=== PATIENT | female | born 1940 | race Caucasian/White ===

== ENCOUNTER 2017-02-19 12:36 | Emergency (ER) | payer MEDICARE, BC ==
[2017-02-19 12:58] VITALS: BP 119/87
--- NOTE | 2017-02-19 14:28 | EDM.PDOC ---
ED HPI GENERAL MEDICAL PROBLEM - General Chief Complaint: Laceration Stated Complaint: FINGERS CAUGHT IN GARAGE DOOR Time Seen by Provider: 02/19/17 12:55 Source of Information: Reports: Patient History Limitations: Reports: No Limitations - History of Present Illness INITIAL COMMENTS - FREE TEXT/NARRATIVE: This is a 76yo F here for catching her fingers in her garage door. She lacerated the distal pads of the 3rd and 4th digits of the right hand. Patient is up to date with her tetanus. She has been able to move the finger and has good rom. Onset: Sudden Onset Date: 02/19/17 Onset Time: 11:30 Location: Reports: Upper Extremity, Right Severity: Moderate Associated Symptoms: Reports: No Other Symptoms Right 4-Ring finger Pain Score (Numeric/FACES): 10 - Related Data Allergies Allergy/AdvReac Type Severity Reaction Status Date / Time meperidine HCl [From Demerol] Allergy Hives Verified 11/01/13 16:38 Penicillins Allergy Hives Verified 11/01/13 16:38 Sulfa (Sulfonamide Allergy Hives Verified 11/01/13 16:38 Antibiotics) Home Meds: Home Meds Gabapentin [Gabapentin] 100 mg PO BID 06/04/16 [History] Past Medical History Cardiovascular History: Reports: Afib Other Cardiovascular History: noted a irreularity when she had her lung surg Respiratory History: Reports: Other (See Below) Other Respiratory History: Patient had lesion for several years and then it started to grow so was removed and found to be cancerous Gastrointestinal History: Reports: None 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 OB/BYN History: % vag births 4 living childrens Other Musculoskeletal History: wrist fracture Neurological History: Reports: Migraines Psychiatric History: Reports: Depression Oncologic (Cancer) History: Reports: Lung - Infectious Disease History Infectious Disease History: Reports: Chicken Pox - Past Surgical History Musculoskeletal Surgical History: Reports: Knee Replacement, Shoulder Replacement, Other (See Below) Social & Family History - Tobacco Use Smoking Status *Q: Former Smoker Used Tobacco, but Quit: Yes Month Tobacco Last Used: Jul 2010 Second Hand Smoke Exposure: No - Caffeine Use Caffeine Use: Reports: Coffee, Soda - Recreational Drug Use Recreational Drug Use: No ED ROS GENERAL - Review of Systems Review Of Systems: ROS reveals no pertinent complaints other than HPI. ED EXAM, SKIN/RASH Exam: See Below Exam Limited By: No Limitations General Appearance: Alert, WD/WN, Mild Distress Respiratory/Chest: No Respiratory Distress Cardiovascular: Normal Peripheral Pulses Extremities: Normal Capillary Refill, Other (good sensations of tips of lacerated figners; laceration 2.5cm of 3rd digit of the mid pad of the distal phalange and 2.4cm of the 4th digit pad of the distal phalange) Neurological: Alert, Oriented, CN II-XII Intact ED WOUND PROCEDURES - Laceration/Wound Repair Right Anterior Distal Finger Laceration/Wound Length In cm: 2.5 (3rd digit) Appearance: Superficial, Subcutaneous Distal NVT: Neuro & Vascular Intact, No Tendon Injury Anesthetic Type: Local Local Anesthesia - Lidocaine (Xylocaine): 1% Plain Local Anesthetic Volume: 5cc Skin Prep: Providone-Iodine (Betadine), Sterile Drape Wound Exploration, Debridement, Revision: Wound Explored Suture Size: 4-0 # of Sutures: 11 Suture Type: Nylon, Interrupted, Simple Drain Placement: No Sterile Dressing Applied: Nurse Tetanus Status Addressed: Yes Complications: None Left Anterior Ventral Finger Laceration/Wound Length In cm: 2.4 (4th digit) Appearance: Superficial, Subcutaneous Distal NVT: Neuro & Vascular Intact, No Tendon Injury Anesthetic Type: Local Local Anesthesia - Lidocaine (Xylocaine): 1% Plain Local Anesthetic Volume: 5cc Skin Prep: Providone-Iodine (Betadine) Saline Irrigation Total cc's: 30 Wound Exploration, Debridement, Revision: Wound Explored Suture Size: 4-0 Suture Type: Nylon, Interrupted, Simple Drain Placement: No Sterile Dressing Applied: Nurse Tetanus Status Addressed: Yes Complications: None Course - Vital Signs Last Recorded V/S: Last Vital Signs Temp 36.8 C 02/19/17 12:57 Pulse 92 02/19/17 12:57 Resp 18 02/19/17 12:57 BP 119/87 02/19/17 12:57 Pulse Ox 99 02/19/17 12:57 Departure - Departure Time of Disposition: 13:20 Disposition: Home, Self-Care 01 Condition: Good Clinical Impression: Laceration of finger of right hand Qualifiers: Encounter type: initial encounter Finger: middle finger Damage to nail status: without damage Foreign body presence: without foreign body Qualified Code(s): S61.212A - Laceration without foreign body of right middle finger without damage to nail, initial encounter Laceration of finger of right hand Qualifiers: Encounter type: initial encounter Finger: middle finger Damage to nail status: without damage Foreign body presence: without foreign body Qualified Code(s): S61.212A - Laceration without foreign body of right middle finger without damage to nail, initial encounter Laceration of finger of right hand without damage to nail Qualifiers: Encounter type: initial encounter Finger: ring finger Foreign body presence: without foreign body Qualified Code(s): S61.214A - Laceration without foreign body of right ring finger without damage to nail, initial encounter - Discharge Information Instructions: Laceration Care, Adult Referrals: PCP,Unknown [Primary Care Provider] - Forms: ED Department Discharge Care Plan Goals: Return to clinic in 7 to 10 days for suture removal. Keep wound clean and dry. Watch for signs of infection. Return to clinic or hospital with any questions or concerns.
== END 2017-02-19 13:55 | disposition home or self-care (01) ==
LOC: LB.ED 12:36
DX: S61.214A Laceration without foreign body of right ring finger without damage to nail, initial encounter (principal); S61.212A Laceration without foreign body of right middle finger without damage to nail, initial encounter; I48.91 Unspecified atrial fibrillation; F32.9 Major depressive disorder, single episode, unspecified; Z96.659 Presence of unspecified artificial knee joint; Z98.890 Other specified postprocedural states; Z87.891 Personal history of nicotine dependence; Z85.118 Personal history of other malignant neoplasm of bronchus and lung; Z88.0 Allergy status to penicillin; Z88.2 Allergy status to sulfonamides; Z88.6 Allergy status to analgesic agent; W23.0XXA Caught, crushed, jammed, or pinched between moving objects, initial encounter; Y92.59 Other trade areas as the place of occurrence of the external cause
CPT/HCPCS: 12002; 99282; 99283-25

== ENCOUNTER 2017-07-31 23:32 | Emergency (ER) | payer MEDICARE, BC ==
[2017-07-31] MEDS ORDERED: Albuterol 8 GM Inhaler INH ONE (23:40)
[2017-07-31] MEDS ORDERED: Azithromycin 250 MG Tab ONE (23:40)
[2017-08-01] MEDS ORDERED: Albuterol/Ipratropium 3.0-0.5 MG/3 ML Neb Soln ONE (00:14)
[2017-08-01 01:01] VITALS: BP 131/70
--- NOTE | 2017-08-01 01:59 | ER ---
HISTORY OF PRESENT ILLNESS: A 76-year-old lady here with complaints of coughing and chest congestion for about a week. She has been coughing up some phlegm on a regular basis. Sometimes, she gets short of breath when she is coughing. She has also noticed a little bit of wheezing. The patient does not have history of asthma. She does have history of lung cancer and has had the right lower lobe of lung removed 1 year ago. The patient denies any GI symptoms. OBJECTIVE: GENERAL APPEARANCE: The patient is awake and alert. She is in no obvious distress. VITAL SIGNS: Reviewed as listed. HEENT: On physical exam of ears; TMs are normal. Nares are patent. Oral mucous membranes moist. Posterior pharynx shows mild drainage. NECK: Supple. LUNG: Exam reveals deep breathing does induce coughing. The patient does have wheezing that is obvious with coughing. There are scattered rhonchi. I do not hear any air exchange of course in the right lower lobe. INITIAL TREATMENT: DuoNeb treatment was given to the patient. This did help somewhat with the wheezing and the coughing. DIAGNOSIS: Asthmatic bronchitis. TREATMENT PLAN: A Z-Dl will be given to be taken as directed. I will give her also an albuterol inhaler two puffs every 4-6 hours for the next couple of days and then as needed for coughing and shortness of breath. Recheck should be within a couple of days if her symptoms are not obviously improving. CRS/MODL /[id number]
[2017-08-01] MEDS ORDERED: Albuterol/Ipratropium 3.0-0.5 MG/3 ML Neb Soln NEB ONE (23:55)
== END 2017-08-01 00:52 | disposition home or self-care (01) ==
LOC: LB.ED 23:32
DX: J45.909 Unspecified asthma, uncomplicated (principal); Z85.118 Personal history of other malignant neoplasm of bronchus and lung
CPT/HCPCS: 99283; A9270; J7620

== ENCOUNTER 2018-07-16 09:22 | Emergency (ER) | payer MEDICARE, BC ==
--- NOTE | 2018-07-16 10:41 | EDM.PDOC ---
ED HPI GENERAL MEDICAL PROBLEM - General Time Seen by Provider: 07/16/18 10:00 Source of Information: Reports: Patient History Limitations: Reports: No Limitations - History of Present Illness INITIAL COMMENTS - FREE TEXT/NARRATIVE: Pt is 77 year old female with PMH of lung cancer with lobectomy. Claims she has been having fever on and off for 1 year and also cough on and of for 1 year now. She had some sweating last night and hence she is here to have her self checked. No productive sputum. No shortness of breath or wheezing. No nasal congestion, bodyaches.No nausea or vomiting. No fatigue. no other complaint. Duration: Intermittent, Other (1 year) Quality: Reports: Ache Severity: Mild Improves with: Reports: None Worsens with: Reports: None Associated Symptoms: Reports: Cough, Fever/Chills. Denies: Confusion, Chest Pain, Diaphoresis, Headaches, Nausea/Vomiting, Rash, Seizure, Shortness of Breath, Syncope, Weakness - Related Data Allergies Allergy/AdvReac Type Severity Reaction Status Date / Time meperidine HCl [From Demerol] Allergy Hives Verified 11/01/13 16:38 Penicillins Allergy Hives Verified 11/01/13 16:38 Sulfa (Sulfonamide Allergy Hives Verified 11/01/13 16:38 Antibiotics) Home Meds: Home Meds Fluticasone Propionate [Flovent HFA] 1 puff INH BID 08/01/17 [History] Past Medical History HEENT History: Reports: Other (See Below) Other HEENT History: right lobe aneurism Cardiovascular History: Reports: Afib Other Cardiovascular History: noted a irreularity when she had her lung surg Respiratory History: Reports: SOB, Other (See Below) Other Respiratory History: Patient had lesion for several years and then it started to grow so was removed and found to be cancerous Gastrointestinal History: Reports: None 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 living 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 Other Musculoskeletal History: wrist fracture Neurological History: Reports: CVA, Migraines Other Neuro History: right side aneurysm Psychiatric History: Reports: Depression Oncologic (Cancer) History: Reports: Lung - Infectious Disease History Infectious Disease History: Reports: Chicken Pox - Past Surgical History Respiratory Surgical History: Reports: Lung Biopsies, Other (See Below) Other Respiratory Surgeries/Procedures: right lower lobectomy Musculoskeletal Surgical History: Reports: Knee Replacement, Shoulder Replacement, Other (See Below) Other Musculoskeletal Surgeries/Procedures:: pt states has had bilateral knee replacement and shoulder sx Oncologic Surgical History: Reports: Lobectomy Other Oncologic Surgeries/Procedures: right lower lobe Social & Family History - Caffeine Use Caffeine Use: Reports: Coffee, Soda ED ROS GENERAL - Review of Systems Review Of Systems: See Below Constitutional: Reports: Fever, Chills. Denies: Weakness, Fatigue HEENT: Denies: Ear Pain, Rhinitis, Throat Pain, Throat Swelling Respiratory: Reports: Cough. Denies: Shortness of Breath, Pleuritic Chest Pain , Sputum Cardiovascular: Denies: Chest Pain, Lightheadedness Endocrine: Denies: Fatigue GI/Abdominal: Denies: Abdominal Pain, Nausea, Vomiting : Denies: Flank Pain, Frequency Musculoskeletal: Denies: Joint Pain, Joint Swelling Skin: Denies: Bruising, Pruritis, Rash ED EXAM, GENERAL - Physical Exam Exam: See Below Exam Limited By: No Limitations General Appearance: Alert, WD/WN, No Apparent Distress Eye Exam: Bilateral Eye: EOMI, PERRL Ears: Normal External Exam, Normal Canal, Hearing Grossly Normal, Normal TMs Ear Exam: Bilateral Ear: Auricle Normal, Canal Normal, TM normal Nose: Normal Inspection Throat/Mouth: Normal Inspection, Normal Lips, Normal Teeth, Normal Gums, Normal Oropharynx, Normal Voice, No Airway Compromise Head: Atraumatic, Normocephalic Neck: Normal Inspection, Supple, Non-Tender, Full Range of Motion Respiratory/Chest: No Respiratory Distress, Lungs Clear, Normal Breath Sounds, No Accessory Muscle Use, Chest Non-Tender Cardiovascular: Normal Peripheral Pulses, Regular Rate, Rhythm, No Edema, No Gallop, No JVD, No Murmur, No Rub GI/Abdominal: Normal Bowel Sounds, Soft, Non-Tender, No Organomegaly, No Distention, No Abnormal Bruit, No Mass Extremities: Normal Inspection, Normal Range of Motion Neurological: Alert, Oriented Skin Exam: Warm, Intact Course - Vital Signs Text/Narrative:: Pt's vitals are stable. Sats are above 92% of room air. Clinical exam is normal. Her CBC shows white count of 5.1 normal. her Chest x-ray appears normal. Pt reassured that she might have had viral fever. If her fever is going on for a year, should followup with her oncologist or her PCP to see if it is her post cancer related. But clinically patient appears stable. - Orders/Labs/Meds Orders: Active Orders 24 hr Category Date Time Status Chest 2V [CR] Stat Exams 07/16/18 09:53 Taken Labs: Laboratory Tests 07/16/18 Range/Units 10:04 WBC 5.1 (4.0-11.0) K/uL RBC 4.10 (3.80-5.80) M/uL Hgb 12.8 (11.5-16.5) g/dL Hct 38.9 (37.0-47.0) % MCV 95 (76-96) fL MCH 31.2 (27.0-32.0) pg MCHC 32.9 (31.0-35.0) g/dL RDW 13.6 (11.0-16.0) % Plt Count 215 (150-500) K/uL MPV 10.2 H (6.0-10.0) fL Neut % (Auto) 73.7 H (45.0-70.0) % Lymph % (Auto) 13.0 L (20.0-40.0) % Gillespie % (Auto) 11.1 H (3.0-10.0) % Eos % (Auto) 1.6 (1.0-5.0) % Baso % (Auto) 0.6 H (0.0-0.5) % Neut # (Auto) 3.79 (2.00-7.50) K/uL Lymph # (Auto) 0.67 L (1.50-4.00) K/uL Gillespie # (Auto) 0.57 (0.20-0.80) K/uL Eos # (Auto) 0.08 (0.04-0.40) K/uL Baso # (Auto) 0.03 (0.02-0.10) K/uL Departure - Departure Time of Disposition: 10:45 Disposition: Home, Self-Care 01 Condition: Good Clinical Impression: Cough - Discharge Information *PRESCRIPTION DRUG MONITORING PROGRAM REVIEWED*: Not Applicable *COPY OF PRESCRIPTION DRUG MONITORING REPORT IN PATIENT RAIZA: Not Applicable Referrals: PCP,None [Primary Care Provider] - Additional Instructions: Pt's vitals are stable. Sats are above 92% of room air. Clinical exam is normal. Her CBC shows white count of 5.1 normal. her Chest x-ray appears normal. Pt reassured that she might have had viral fever. Steam inhalations 2-3 times daily. If her fever is going on for a year, should followup with her oncologist or her PCP to see if it is her post cancer related. But clinically patient appears stable. - Problem List & Annotations (1) Cough SNOMED Code(s): 41884886 Code(s): R05 - COUGH Status: Acute Current Visit: Yes - Problem List Review Problem List Initiated/Reviewed/Updated: Yes - My Orders Last 24 Hours: My Active Orders 07/16/18 09:53 Chest 2V [CR] Stat - Assessment/Plan Last 24 Hours: My Active Orders 07/16/18 09:53 Chest 2V [CR] Stat Assessment:: viral cough Plan: Pt's vitals are stable. Sats are above 92% of room air. Clinical exam is normal. Her CBC shows white count of 5.1 normal. her Chest x-ray appears normal. Pt reassured that she might have had viral fever. Steam inhalations 2-3 times daily. If her fever is going on for a year, should followup with her oncologist or her PCP to see if it is her post cancer related. But clinically patient appears stable.
[2018-07-16 11:05] VITALS: BP 111/56
--- NOTE | 2018-07-17 11:44 | CR ---
PA AND LATERAL CHEST, 07/16/18 Comparison made to a prior exam dated 06/03/16. The heart size is normal. The aorta is calcified and ectatic. The lungs are clear. No pneumothorax. No pleural effusions. No evidence of acute intrathoracic disease. [id number] [facility]
== END 2018-07-16 10:50 | disposition home or self-care (01) ==
LOC: LB.ED 09:22
DX: R05 Cough (principal); Z88.0 Allergy status to penicillin; Z88.2 Allergy status to sulfonamides; Z85.118 Personal history of other malignant neoplasm of bronchus and lung
CPT/HCPCS: 36415; 71046; 85025; 99283

== ENCOUNTER 2020-05-31 07:42 | Emergency (ER) | payer MEDICARE, BC ==
[2020-05-31 08:55] VITALS: BP 126/80; PULSE 96
== END 2020-05-31 09:05 | disposition home or self-care (01) ==
LOC: LB.ED 07:42 → SUPCPDRO 07:42 → LB.ED 09:05
DX: B02.9 Zoster without complications (principal)
CPT/HCPCS: 99282

== ENCOUNTER 2022-04-15 09:26 | Emergency (ER) | payer MEDICARE, BC ==
[2022-04-15 11:10] LABS: ESTIMATED GFR 75 mL/min (>60)
[2022-04-15 18:55] VITALS: BP 72/55; PULSE 95
== END 2022-04-15 11:15 | disposition home or self-care (01) ==
LOC: LB.ED 09:26
DX: U07.1 COVID-19 (principal); J40 Bronchitis, not specified as acute or chronic; Z88.8 Allergy status to other drugs, medicaments and biological substances; Z88.0 Allergy status to penicillin; Z88.2 Allergy status to sulfonamides; Z90.49 Acquired absence of other specified parts of digestive tract
CPT/HCPCS: 36415; 71045; 80048; 85025; 99282; 99283; U0002

== ENCOUNTER 2023-04-03 13:51 | Emergency (ER) | payer MEDICARE, BC ==
[2023-04-03 14:12] LABS: BASOPHILS ABSOLUTE AUTO 0.03 K/uL (0.02-0.10); BASOPHILS PERCENT AUTO 0.4 % (0.0-0.5); EOSINOPHILS ABSOLUTE AUTO 0.01 K/uL (0.04-0.40); EOSINOPHILS PERCENT AUTO 0.1 % (1.0-5.0); HEMATOCRIT 38.6 % (37.0-47.0); HEMOGLOBIN 12.6 g/dL (11.5-16.5); LYMPHOCYTES ABSOLUTE AUTO 1.17 K/uL (1.50-4.00); LYMPHOCYTES PERCENT AUTO 15.3 % (20.0-40.0); MEAN CORPUSCULAR HEMOGLOBIN 31.1 pg (27.0-32.0); MEAN CORPUSCULAR HGB CONC 32.6 g/dL (31.0-35.0); MEAN CORPUSCULAR VOLUME 95 fL (76-96); MEAN PLATELET VOLUME 10.1 fL (6.0-10.0); MONOCYTES ABSOLUTE AUTO 0.49 K/uL (0.20-0.80); MONOCYTES PERCENT AUTO 6.4 % (3.0-10.0); NEUTROPHILS ABSOLUTE AUTO 5.93 K/uL (2.00-7.50); NEUTROPHILS PERCENT AUTO 77.8 % (45.0-70.0); PLATELET COUNT,PLT 259 K/uL (150-500); RED BLOOD CELL COUNT 4.05 M/uL (3.80-5.80); RED CELL DISTRIBUTION WIDTH 13.8 % (11.0-16.0); WHITE BLOOD CELL COUNT,WBC 7.6 K/uL (4.0-11.0)
[2023-04-03] MEDS ORDERED: Sodium Chloride 0.9% 1,000 ML IV ONE (14:25)
[2023-04-03 14:27] LABS: ALBUMIN 3.5 g/dL (3.4-5.0); ALKALINE PHOSPHATASE 82 U/L (46-116); ANION GAP 10.8 mmol/L (5.0-15.0); ASPARTATE AMNIOTRANSFERASE,AST 14 U/L (15-37); BILIRUBIN TOTAL 0.7 mg/dL (0.0-1.0); BLOOD UREA NITROGEN,BUN 16 mg/dL (8-26); BUN/CREATININE RATIO 29.1 (6-25); CALCIUM 8.7 mg/dL (8.5-10.1); CHLORIDE,CL 103 mmol/L (98-107); CREATININE 0.55 mg/dL (0.55-1.02); ESTIMATED GFR 90 mL/min (>60); GLUCOSE RANDOM 146 mg/dL (74-100); POTASSIUM,K 3.8 mmol/L (3.5-5.1); PROTEIN TOTAL,TP 6.9 g/dL (6.4-8.2); SODIUM,NA 137 mmol/L (136-145)
[2023-04-03 14:38] LABS: ALANINE AMINOTRANSFERASE,ALT < 6 U/L (12-78)
[2023-04-03 16:49] LABS: APPEARANCE,URINE CLEAR (CLEAR); BILIRUBIN,URINE NEGATIVE (NEGATIVE); COLOR,URINE YELLOW; GLUCOSE,URINE NEGATIVE (NEGATIVE); KETONES,URINE 15 mg/dL (NEGATIVE); LEUKOCYTE ESTERASE,URINE NEGATIVE (NEGATIVE); NITRITE,URINE NEGATIVE (NEGATIVE); OCCULT BLOOD,URINE NEGATIVE (NEGATIVE); PH,URINE 6.5 (5.0-8.0); PROTEIN,URINE TRACE mg/dL (NEGATIVE); UROBILINOGEN,URINE 0.2 E.U./dL (0.2-1.0)
[2023-04-03 16:57] LABS: AMORPHOUS SEDIMENT,URINE FEW /HPF; COARSE GRANULAR CASTS,URINE FEW /HPF; SQUAMOUS EPITHELIAL CELLS,UR FEW /HPF; WBC,URINE 0-5 /HPF
[2023-04-03 17:53] VITALS: BP 118/51; PULSE 65
== END 2023-04-03 18:15 | disposition home or self-care (01) ==
LOC: LB.ED 13:51
DX: R53.1 Weakness (principal); G20 Parkinson's disease; R46.4 Slowness and poor responsiveness; J45.909 Unspecified asthma, uncomplicated; Z88.5 Allergy status to narcotic agent; Z88.2 Allergy status to sulfonamides; Z86.73 Personal history of transient ischemic attack (TIA), and cerebral infarction without residual deficits; Z88.0 Allergy status to penicillin; Z79.899 Other long term (current) drug therapy
CPT/HCPCS: 36415; 70450; 71045; 80053; 81001; 82947; 85025; 99283; 99285; J7030

== ENCOUNTER 2023-07-29 11:46 | Emergency (ER) | payer MEDICARE, BC ==
[2023-07-29 15:46] VITALS: BP 105/54; PULSE 78
== END 2023-07-29 13:08 | disposition home or self-care (01) ==
LOC: LB.ED 11:46
DX: R51.9 Headache, unspecified (principal); K02.9 Dental caries, unspecified; I25.10 Atherosclerotic heart disease of native coronary artery without angina pectoris; I48.91 Unspecified atrial fibrillation; J44.9 Chronic obstructive pulmonary disease, unspecified; Z90.49 Acquired absence of other specified parts of digestive tract; Z90.710 Acquired absence of both cervix and uterus; Z87.891 Personal history of nicotine dependence; Z79.899 Other long term (current) drug therapy; Z88.0 Allergy status to penicillin; Z88.2 Allergy status to sulfonamides; Z88.8 Allergy status to other drugs, medicaments and biological substances
CPT/HCPCS: 70450; 72125; 99284